=== PATIENT | female | born 1945 | race Caucasian/White ===

== ENCOUNTER 2023-12-17 16:53 | Inpatient (IN) | payer MEDICARE ==
[2023-12-17 17:48] LABS: Anisocytosis Slight; Basophils # (A) 0.1 k/uL (0-0.2); Basophils % (A) 1 %; Eosinophils # (A) 0.2 k/uL (0-0.7); Eosinophils % (A) 1 %; HCT 39.2 % (34.0-46.0); HGB 12.2 gm/dL (11.4-16.0); Hypochromasia Slight; Lymphocytes # (A) 1.1 k/uL (1.0-4.8); Lymphocytes % (A) 8 %; MCH 26.8 pg (25.0-35.0); MCHC 31.1 g/dL (31.0-37.0); Mean Platelet Volume 7.3; Monocytes # (A) 1.3 k/uL (0-1.0); Monocytes % (A) 9 %; Neutrophils % (A) 80 %; Platelet Count 376 k/uL (150-450); RBC 4.56 m/uL (3.80-5.40); WBC 14.9 k/uL (3.8-10.6)
[2023-12-17 18:04] LABS: INR 0.9 (<1.2); Prothrombin Time 10.3 sec (10.0-12.5)
[2023-12-17 18:08] LABS: Partial Thromboplastin Time 21.2 sec (22.0-30.0)
--- NOTE | 2023-12-17 18:12 | XR ---
EXAMINATION TYPE: XR chest 2V DATE OF EXAM: 12/17/2023 5:57 PM CLINICAL INDICATION: Female, 78 years old with history of difficulty breathing; [facility] COMPARISON: None TECHNIQUE: XR chest 2V Frontal and lateral views of the chest. FINDINGS: Lungs/Pleura: There is flattening of the diaphragm with increased lucency of the lungs. No evidence o f pneumothorax, pleural effusion or focal consolidation. Pulmonary vascularity: Unremarkable. Heart/mediastinum: Cardiomediastinal silhouette is unremarkable. Musculoskeletal: No acute osseous pathology. IMPRESSION: 1. No acute cardiopulmonary disease process. 2. COPD changes. [facility], , 12/17/2023 6:10 PM
--- NOTE | 2023-12-17 19:25 | ED ---
SOB HPI - General Chief Complaint: Shortness of Breath Stated Complaint: SOB Time Seen by Provider: 12/17/23 17:08 Source: patient, family Mode of arrival: wheelchair Limitations: no limitations - History of Present Illness Initial Comments: 78-year-old female with past medical history of COPD who presents emergency department with shortness of breath. States that for the past week she has had swelling in her lower extremities and increasing short of breath. She arrives with oxygen saturation in the 80s. She does not wear oxygen at home. She has never been hospitalized for COPD. No use of steroids. Does use a nebulizer. Took 1 treatment this morning at 9 AM. She denies any fevers, chills or cough. No history of DVT or PE. No history of congestive heart failure. She does take Lasix 20 mg twice daily. Denies weight gain. No history of coronary disease. No other alleviating, precipitating or modifying factors - Related Data Home Medications Medication Instructions Recorded Confirmed Aspirin 81 mg PO DAILY 03/29/14 12/17/23 Levothyroxine Sodium [Synthroid] 25 mcg PO DAILY 03/29/14 12/17/23 Famotidine [Pepcid] 20 mg PO DAILY PRN 12/17/23 12/17/23 Ferrous Sulfate [Feosol] 325 mg PO DAILY 12/17/23 12/17/23 Fluticasone Propion/Salmeterol 1 puff INHALATION RT-BID 12/17/23 12/17/23 [Wixela 500-50 Inhub] Furosemide [Lasix] 40 mg PO BID 12/17/23 12/17/23 allopurinoL [Zyloprim] 100 mg PO DAILY 12/17/23 12/17/23 Allergies Allergy/AdvReac Type Severity Reaction Status Date / Time Penicillins Allergy Rash/Hives Verified 12/17/23 18:47 Sulfa (Sulfonamide Allergy Rash/Hives Verified 12/17/23 18:47 Antibiotics) Review of Systems ROS Statement: Those systems with pertinent positive or pertinent negative responses have been documented in the HPI. ROS Other: All systems not noted in ROS Statement are negative. Past Medical History Past Medical History: COPD, Hyperlipidemia, Hypertension, Myocardial Infarction (ND), Osteoarthritis (OA), Thyroid Disorder History of Any Multi-Drug Resistant Organisms: None Reported Additional Past Surgical History / Comment(s): thyroidectomy, carotid stent Past Anesthesia/Blood Transfusion Reactions: No Reported Reaction Smoking Status: Former smoker Past Alcohol Use History: None Reported Past Drug Use History: None Reported - Past Family History Mother Family Medical History: Deep Vein Thrombosis (DVT) General Exam Limitations: no limitations General appearance: alert, in no apparent distress Head exam: Present: atraumatic, normocephalic, normal inspection Eye exam: Present: normal appearance, PERRL, EOMI. Absent: scleral icterus, con junctival injection, periorbital swelling ENT exam: Present: normal exam, mucous membranes moist Neck exam: Present: normal inspection. Absent: tenderness, meningismus, lymphadenopathy Respiratory exam: Present: decreased breath sounds. Absent: respiratory distress, wheezes, rales, rhonchi, stridor Cardiovascular Exam: Present: regular rate, normal rhythm, normal heart sounds. Absent: systolic murmur, diastolic murmur, rubs, gallop, clicks GI/Abdominal exam: Present: soft, normal bowel sounds. Absent: distended, tenderness, guarding, rebound, rigid Extremities exam: Present: full ROM, normal capillary refill, pedal edema. Absent: tenderness, joint swelling, calf tenderness Back exam: Present: normal inspection Neurological exam: Present: alert, oriented X3, CN II-XII intact Psychiatric exam: Present: normal affect, normal mood Skin exam: Present: warm, dry, intact, normal color. Absent: rash Course Vital Signs 12/17/23 12/17/23 12/17/23 16:58 17:30 18:00 Temperature 97.4 F L Pulse Rate 76 73 73 Respiratory 18 18 18 Rate Blood Pressure 158/76 169/64 154/70 O2 Sat by Pulse 91 L 97 98 Oximetry 12/17/23 12/17/23 12/17/23 18:30 19:00 19:18 Temperature Pulse Rate 71 71 71 Respiratory 18 18 18 Rate Blood Pressure 163/74 163/68 163/69 O2 Sat by Pulse 98 98 98 Oximetry 12/17/23 12/17/23 12/17/23 20:18 20:28 21:00 Temperature Pulse Rate 71 75 73 Respiratory 23 Rate Blood Pressure 166/73 O2 Sat by Pulse 97 Oximetry 12/17/23 12/18/23 12/18/23 22:00 04:00 08:37 Temperature Pulse Rate 74 73 70 Respiratory 24 22 Rate Blood Pressure 162/68 136/94 O2 Sat by Pulse 97 97 Oximetry 12/18/23 12/18/23 12/18/23 08:52 08:58 12:13 Temperature Pulse Rate 77 76 67 Respiratory 19 Rate Blood Pressure 176/93 O2 Sat by Pulse 96 Oximetry 12/18/23 12/18/23 12/18/23 12:21 13:00 17:13 Temperature Pulse Rate 65 71 70 Respiratory 16 Rate Blood Pressure 152/76 O2 Sat by Pulse 94 L Oximetry 12/18/23 12/18/23 12/18/23 17:35 18:40 20:52 Temperature Pulse Rate 69 76 71 Respiratory 19 18 18 Rate Blood Pressure 161/75 135/63 O2 Sat by Pulse 85 L 95 96 Oximetry 12/18/23 12/18/23 12/18/23 21:02 21:09 21:15 Temperature 98.2 F Pulse Rate 73 72 69 Respiratory 18 Rate Blood Pressure 135/63 O2 Sat by Pulse 96 Oximetry Medical Decision Making - Medical Decision Making Was pt. sent in by a medical professional or institution (Dr. PA, TELESALES SPECIALIST, urgent care, hospital, or prison...) When possible be specific @ -No Did you speak to anyone other than the patient for history (EMS, parent, family, police, friend...)? What history was obtained from this source @ -Spoke with the patient's family for history Did you review nursing and triage notes (agree or disagree)? Why? @ -I reviewed and agree with nursing and triage notes Were old charts reviewed (outside hosp., previous admission, EMS record, old EKG, old radiological studies, urgent care reports/EKG's, prison records)? Report findings @ -No old charts were reviewed Differential Diagnosis (chest pain, altered mental status, abdominal pain women, abdominal pain men, vaginal bleeding, weakness, fever, dyspnea, syncope, h eadache, dizziness, GI bleed, back pain, seizure, CVA, palpatations, mental health, musculoskeletal)? @ -Differential Dyspnea: Coronary syndrome, arrhythmia, tamponade, asthma, COPD, pulmonary embolism, pneumonia, pneumothorax, pulmonary effusion, anaphylaxis, diabetic ketoacidosis, flailed chest, pulmonary contusion, diaphragmatic rupture, anemia, neuromuscular, this is not meant to be an all-inclusive list. EKG interpreted by me (3pts min.). @ -yes and demonstrates sinus rhythm with a rate of 71. IL interval 144. QRS 94. QTc of 439. No acute ST segment elevations or depressions X-rays interpreted by me (1pt min.). @ -Yes and demonstrates no acute process CT interpreted by me (1pt min.). @ -Yes and demonstrates no PE but there are signs of heart failure U/S interpreted by me (1pt. min.). @ -None done What testing was considered but not performed or refused? (CT, X-rays, U/S, labs)? Why? @ -None What meds were considered but not given or refused? Why? @ -None Did you discuss the management of the patient with other professionals (professionals i.e. , PA, TELESALES SPECIALIST, lab, RT, psych nurse, 7th grade social studies teacher, shovel mechanic, teacher, correction officer city or county jail, manager of case)? Give summary @ -Spoke with Brisa for admission Was smoking cessation discussed for >3mins.? @ -No Was critical care preformed (if so, how long)? @ -Yes for NSTEMI Were there social determinants of health that impacted care today? How? (Homelessness, low income, unemployed, alcoholism, drug addiction, transportation, low edu. Level, literacy, decrease access to med. care, assisted, rehab)? @ -No Was there de-escalation of care discussed even if they declined (Discuss DNR or withdrawal of care, Hospice)? DNR status @ -No What co-morbidities impacted this encounter? (DM, HTN, Smoking, COPD, CAD, Cancer, CVA, ARF, Chemo, Hep., AIDS, mental health diagnosis, sleep apnea, morbid obesity)? @ -COPD Was patient admitted / discharged? Hospital course, mention meds given and route, prescriptions, significant lab abnormalities, going to OR and other pertinent info. @ -Upon arrival patient seen and evaluated in room 15. Thorough history and physical exam was performed. Patient placed on continuous pulse ox and cardiac monitoring. IV is established laboratory studies are conducted. Chest x-ray was performed. Patient was given a breathing treatment. CT was performed which demonstrated signs of heart failure. I did give the patient a dose of Lasix. She is started on heparin. Patient does have signs concerning for new onset heart failure. Because of this I did recommend admission. Patient was agreeable to this. Spoke with Brisa for admission Undiagnosed new problem with uncertain prognosis? @ -No Drug Therapy requiring intensive monitoring for toxicity (Heparin, Nitro, Insulin, Cardizem)? @ -Heparin Were any procedures done? @ -No Diagnosis/symptom? @ -Acute respiratory insufficiency, hypoxic respiratory failure, new onset heart failure, NSTEMI Acute, or Chronic, or Acute on Chronic? @ -Acute Uncomplicated (without systemic symptoms) or Complicated (systemic symptoms)? @ -Complicated Side effects of treatment? @ -No Exacerbation, Progression, or Severe Exacerbation? @ -No Poses a threat to life or bodily function? How? (Chest pain, USA, ND, pneumonia, PE, COPD, DKA, ARF, appy, cholecystitis, CVA, Diverticulitis, Homicidal, Suicidal, threat to staff... and all critical care pts) @ -Yes as patient does have elevated troponin with diagnosis of NSTEMI - Lab Data Result diagrams: 12/19/23 06:17 12/19/23 06:17 Lab Results 12/17/23 12/17/23 12/17/23 Range/Units 17:24 17:24 17:24 WBC 14.9 H (3.8-10.6) k/uL RBC 4.56 (3.80-5.40) m/uL Hgb 12.2 (11.4-16.0) gm/dL Hct 39.2 (34.0-46.0) % MCV 86.0 (80.0-100.0) fL MCH 26.8 (25.0-35.0) pg MCHC 31.1 (31.0-37.0) g/dL RDW 16.0 H (11.5-15.5) % Plt Count 376 (150-450) k/uL MPV 7.3 Neutrophils % 80 % Lymphocytes % 8 % Monocytes % 9 % Eosinophils % 1 % Basophils % 1 % Neutrophils # 12.0 H (1.3-7.7) k/uL Lymphocytes # 1.1 (1.0-4.8) k/uL Monocytes # 1.3 H (0-1.0) k/uL Eosinophils # 0.2 (0-0.7) k/uL Basophils # 0.1 (0-0.2) k/uL Hypochromasia Slight Anisocytosis Slight PT 10.3 (10.0-12.5) sec INR 0.9 (<1.2) APTT 21.2 L (22.0-30.0) sec D-Dimer 0.88 H (<0.60) mg/L FEU Sodium (137-145) mmol/L Potassium (3.5-5.1) mmol/L Chloride (98-107) mmol/L Carbon Dioxide (22-30) mmol/L Anion Gap mmol/L BUN (7-17) mg/dL Creatinine (0.52-1.04) mg/dL Est GFR (CKD-EPI)AfAm (>60 ml/min/1.73 sqM) Est GFR (CKD-EPI)NonAf (>60 ml/min/1.73 sqM) Glucose (74-99) mg/dL Plasma Lactic Acid Raúl 1.4 (0.7-2.0) mmol/L Calcium (8.4-10.2) mg/dL Magnesium (1.6-2.3) mg/dL Total Bilirubin (0.2-1.3) mg/dL AST (14-36) U/L ALT (4-34) U/L Alkaline Phosphatase (38-126) U/L Troponin I (0.000-0.034) ng/mL NT-Pro-B Natriuret Pep pg/mL Total Protein (6.3-8.2) g/dL Albumin (3.5-5.0) g/dL 12/17/23 12/17/23 Range/Units 17:24 19:52 WBC (3.8-10.6) k/uL RBC (3.80-5.40) m/uL Hgb (11.4-16.0) gm/dL Hct (34.0-46.0) % MCV (80.0-100.0) fL MCH (25.0-35.0) pg MCHC (31.0-37.0) g/dL RDW (11.5-15.5) % Plt Count (150-450) k/uL MPV Neutrophils % % Lymphocytes % % Monocytes % % Eosinophils % % Basophils % % Neutrophils # (1.3-7.7) k/uL Lymphocytes # (1.0-4.8) k/uL Monocytes # (0-1.0) k/uL Eosinophils # (0-0.7) k/uL Basophils # (0-0.2) k/uL Hypochromasia Anisocytosis PT (10.0-12.5) sec INR (<1.2) APTT (22.0-30.0) sec D-Dimer (<0.60) mg/L FEU Sodium 141 (137-145) mmol/L Potassium 3.0 L (3.5-5.1) mmol/L Chloride 96 L (98-107) mmol/L Carbon Dioxide 39 H (22-30) mmol/L Anion Gap 6 mmol/L BUN 19 H (7-17) mg/dL Creatinine 0.81 (0.52-1.04) mg/dL Est GFR (CKD-EPI)AfAm 82 (>60 ml/min/1.73 sqM) Est GFR (CKD-EPI)NonAf 71 (>60 ml/min/1.73 sqM) Glucose 84 (74-99) mg/dL Plasma Lactic Acid Raúl (0.7-2.0) mmol/L Calcium 7.7 L (8.4-10.2) mg/dL Magnesium 2.1 (1.6-2.3) mg/dL Total Bilirubin 0.5 (0.2-1.3) mg/dL AST 38 H (14-36) U/L ALT 31 (4-34) U/L Alkaline Phosphatase 160 H (38-126) U/L Troponin I 0.074 H* (0.000-0.034) ng/mL NT-Pro-B Natriuret Pep 1160 pg/mL Total Protein 7.0 (6.3-8.2) g/dL Albumin 3.9 (3.5-5.0) g/dL Disposition Clinical Impression: Hypoxia, NSTEMI (non-ST elevated myocardial infarction), Heart failure Disposition: ADMITTED IP TO THIS HOSP Condition: Serious Is patient prescribed a controlled substance at d/c from ED?: No Time of Disposition: 21:36 Decision to Admit Reason: Admit from EC Decision Date: 12/17/23 Decision Time: 21:36
[2023-12-17] MEDS: IPRATROPIUM-ALBUTEROL 3 ML NEB INHALATION SCH (20:18)
[2023-12-17 20:55] LABS: ALT 31 U/L (4-34); AST 38 U/L (14-36); African American GFR (CKD) 82 (>60 ml/min/1.73 sqM); Albumin 3.9 g/dL (3.5-5.0); Alkaline Phosphatase 160 U/L (38-126); Anion Gap 6 mmol/L; Blood Urea Nitrogen 19 mg/dL (7-17); Calcium 7.7 mg/dL (8.4-10.2); Carbon Dioxide 39 mmol/L (22-30); Chloride 96 mmol/L (98-107); Glucose 84 mg/dL (74-99); Magnesium 2.1 mg/dL (1.6-2.3); Non-African American GFR(CKD) 71 (>60 ml/min/1.73 sqM); Sodium 141 mmol/L (137-145); Total Bilirubin 0.5 mg/dL (0.2-1.3)
[2023-12-17 21:02] LABS: NT-Pro-B-Type Natriuretic Pept 1160 pg/mL
[2023-12-17] MEDS ORDERED: NALOXONE 0.4 MG/ML 1 ML VIAL IV PRN (21:36)
--- NOTE | 2023-12-17 21:38 | CT ---
EXAMINATION TYPE: CT chest angio for PE CT DLP: 221.9 mGycm, Automated exposure control for dose reduction was used. DATE OF EXAM: 12/17/2023 9:18 PM COMPARISON: Chest radiograph from same day. Multiple CTs of the chest with most recent on . CLINICAL INDICATION: Female, 78 years old with history of elevated d-dimer, elevated trop, hypoxiA; E levated d-dimer, elevated trop, hypoxia. TECHNIQUE/CONTRAST: CTA scan of the thorax is performed with IV Contrast, patient injected with 100ml mL of Isovue 370, M IP images are created and reviewed these are created on a separate workstation.. FINDINGS: Pulmonary Artery: There is no evidence for a filling defect within the pulmonary vasculature to sugge st acute pulmonary embolism. The pulmonary artery is of normal size. Lungs/Pleura: Trace bilateral pleural effusions. No evidence of focal consolidation, or pneumothorax. Pulmonary vascular congestion most pronounced in lung bases. Airway: Large airways are patent. Heart: Heart is enlarged for size. Coronary artery atherosclerosis is present. Vasculature: No evidence of aortic aneurysm. Mediastinum: No gross evidence of adenopathy. Musculoskeletal: No acute osseous abnormalities Soft Tissues/lymph nodes: Unremarkable. Lower neck: No significant findings. Upper Abdomen: Small hiatal hernia is present. IMPRESSION: 1. No evidence of pulmonary embolism. 2. Cardiomegaly with trace bilateral pleural effusions and pulmonary vascular congestion correlate fo r congestive heart failure. 3. Small hiatal hernia. [facility], , 12/17/2023 9:36 PM
[2023-12-17] MEDS ORDERED: HEPARIN SODIUM 1,000 UN/ML (10ML VL) IV PRN (21:41)
[2023-12-17] MEDS: ASPIRIN 81 MG PO STA (22:19)
[2023-12-17] MEDS: FUROSEMIDE 10 MG/ML 4 ML VIAL IV STA (22:19)
[2023-12-17] MEDS: HEPARIN SODIUM 1,000 UN/ML (10ML VL) IV ONE (22:29)
[2023-12-17] MEDS: HEPARIN SOD,PORK IN 0.45% NACL 25,000 UNIT in 0.45% NACL 1 250ML.BAG IV SCH (22:30)
[2023-12-17] MEDS: POTASSIUM CHLORIDE ER 20 MEQ TAB.ER PO STA (22:32)
[2023-12-18 05:02] LABS: Anisocytosis Slight; Basophils # (A) 0.1 k/uL (0-0.2); Basophils % (A) 1 %; Eosinophils # (A) 0.1 k/uL (0-0.7); Eosinophils % (A) 1 %; HCT 35.3 % (34.0-46.0); Hypochromasia Slight; Lymphocytes # (A) 1.2 k/uL (1.0-4.8); Lymphocytes % (A) 8 %; MCH 27.2 pg (25.0-35.0); MCHC 31.2 g/dL (31.0-37.0); MCV 87.3 fL (80.0-100.0); Mean Platelet Volume 7.3; Monocytes # (A) 1.4 k/uL (0-1.0); Monocytes % (A) 10 %; Neutrophils # (A) 10.8 k/uL (1.3-7.7); Neutrophils % (A) 78 %; Platelet Count 355 k/uL (150-450); RBC 4.04 m/uL (3.80-5.40); RDW 16.1 % (11.5-15.5); WBC 13.8 k/uL (3.8-10.6)
[2023-12-18] MEDS ORDERED: FAMOTIDINE 20 MG TAB PO PRN (09:17)
[2023-12-18] MEDS: SPIRONOLACTONE 25 MG TAB PO SCH (09:55)
[2023-12-18] MEDS: carvediloL 6.25 MG TAB PO SCH (09:55)
[2023-12-18] MEDS: FUROSEMIDE 10 MG/ML 4 ML VIAL IV SCH (09:55)
[2023-12-18] MEDS: ASPIRIN 81 MG PO SCH (09:55)
[2023-12-18 10:02] LABS: Anisocytosis Slight; Basophils # (A) 0.1 k/uL (0-0.2); Basophils % (A) 1 %; Eosinophils # (A) 0.1 k/uL (0-0.7); Eosinophils % (A) 1 %; HGB 12.6 gm/dL (11.4-16.0); Hypochromasia Slight; Lymphocytes # (A) 0.8 k/uL (1.0-4.8); Lymphocytes % (A) 5 %; MCH 27.8 pg (25.0-35.0); MCHC 31.5 g/dL (31.0-37.0); MCV 88.3 fL (80.0-100.0); Mean Platelet Volume 7.5; Monocytes # (A) 0.9 k/uL (0-1.0); Monocytes % (A) 6 %; Neutrophils % (A) 87 %; Platelet Count 393 k/uL (150-450); RBC 4.53 m/uL (3.80-5.40); WBC 16.1 k/uL (3.8-10.6)
[2023-12-18 10:50] LABS: African American GFR (CKD) >90 (>60 ml/min/1.73 sqM); Anion Gap 6 mmol/L; Blood Urea Nitrogen 18 mg/dL (7-17); Calcium 7.7 mg/dL (8.4-10.2); Carbon Dioxide 35 mmol/L (22-30); Chloride 102 mmol/L (98-107); Glucose 142 mg/dL (74-99); Non-African American GFR(CKD) 79 (>60 ml/min/1.73 sqM); Potassium 3.5 mmol/L (3.5-5.1); Sodium 143 mmol/L (137-145)
--- NOTE | 2023-12-18 11:14 | P.CRDCN ---
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 We have been asked to evaluate the patient for NSTEMI, possible new onset HF. Patient states that she came into the hospital due to her legs and feet swelling since Friday as well as increasing shortness of breath and hard to walk. She normally does have some shortness of breath at rest and with activity due to her underlying COPD. She is not O2 dependent. Patient also states that she has some chills, no sputum production. No chest pain. Patient has been started on a heparin drip and IV Lasix 40 mg every 12 hours. Patient is seen today in the emergency center waiting for a bed on the cardiac stepdown unit. Blood pressure 136/94, pulse ox 95% on 2 L nasal cannula, heart rate 79. Patient presented with a pulse ox of 91% on room air. EKG: Sinus rhythm with no acute ST changes Chest x-ray: No acute process. COPD. CTA of the chest no pulmonary embolism. Cardiomegaly with trace bilateral pleural effusions and pulmonary vascular congestion. Laboratory studies: WBC initially 14.9 now 16.1, hemoglobin 12.6. Sodium 143, potassium 3.5, BUN 18 creatinine 0.74. Troponin 0.074, 0.086 and 0.087. proBNP 1160. Home cardiac medications: Amlodipine 10 mg daily, aspirin 81 mg daily, Coreg 3.125 mg twice daily, Lasix 40 mg twice daily, hydralazine 100 mg twice daily, also on levothyroxine 25 mcg daily. Echocardiogram performed in 2016 revealed EF of 60 to 65%. Review Of Systems: At the time of my exam: CONSTITUTIONAL: Denies fever or chills. HEENT: Denies blurred vision, vision changes, or eye pain. Denies hemoptysis CARDIOVASCULAR: Denies chest pain. Denies orthopnea. Denies PND. Denies palpitations RESPIRATORY: Denies shortness of breath. GASTROINTESTINAL: Denies abdominal pain. Denies nausea or vomiting. HEMATOLOGIC: Denies bleeding disorders. GENITOURINARY: Denies any blood in urine. SKIN: Denies puritis. Denies rash. Physical examination: Gen: This is a 78-year-old female in no acute distress VS: reviewed HEENT: Head is atraumatic, normocephalic. Pupils equal, round. Sclerae is anicteric. NECK: Supple. No JVD. LUNGS: Decreased breath sounds bilaterally. No intercostal retractions. HEART: Regular rate and rhythm. No murmur. ABDOMEN: Soft No tenderness. EXTREMITIES: Bilateral lower extremity edema. No calf tenderness. NEUROLOGICAL: Patient is awake, alert and oriented x3. Assessment: Flat troponin elevation most likely due to COPD, hypoxia, rule out CAD Leukocytosis Acute on chronic diastolic heart failure COPD Hypertension Hyperlipidemia Plan: Resume patient's home cardiac medications with the following changes Hold hydralazine and amlodipine Increase Coreg to 6.25 mg twice daily Continue heparin drip for another 24 hours Continue IV Lasix 40 mg every 12 hours Add Aldactone 25 mg daily Monitor NAVYA, daily weights, electrolytes and renal function Obtain 2-D echocardiogram and Doppler study to assess cardiac structure and function Further recommendations to follow based upon clinical course Thank you kindly for this consultation. Nurse practitioner note has been reviewed, I agree with documented findings and plan of care. Patient was seen and examined. Past Medical History Past Medical History: COPD, Hyperlipidemia, Hypertension, Myocardial Infarction (MA), Osteoarthritis (OA), Thyroid Disorder History of Any Multi-Drug Resistant Organisms: None Reported Additional Past Surgical History / Comment(s): thyroidectomy, carotid stent Past Anesthesia/Blood Transfusion Reactions: No Reported Reaction Smoking Status: Former smoker Past Alcohol Use History: None Reported Past Drug Use History: None Reported - Past Family History Mother Family Medical History: Deep Vein Thrombosis (DVT) Medications and Allergies Home Medications Medication Instructions Recorded Confirmed Type Aspirin 81 mg PO DAILY 03/29/14 12/17/23 History Levothyroxine Sodium [Synthroid] 25 mcg PO DAILY 03/29/14 12/17/23 History Famotidine [Pepcid] 20 mg PO DAILY PRN 12/17/23 12/17/23 History Ferrous Sulfate [Feosol] 325 mg PO DAILY 12/17/23 12/17/23 History Fluticasone Propion/Salmeterol 1 puff INHALATION RT-BID 12/17/23 12/17/23 History [Wixela 500-50 Inhub] Furosemide [Lasix] 40 mg PO BID 12/17/23 12/17/23 History allopurinoL [Zyloprim] 100 mg PO DAILY 12/17/23 12/17/23 History amLODIPine [Norvasc] 10 mg PO DAILY 12/17/23 12/17/23 History carvediloL [Coreg] 3.125 mg PO BID 12/17/23 12/17/23 History hydrALAZINE HCL [Apresoline] 100 mg PO BID 12/17/23 12/17/23 History Allergies Allergy/AdvReac Type Severity Reaction Status Date / Time Penicillins Allergy Rash/Hives Verified 12/17/23 18:47 Sulfa (Sulfonamide Allergy Rash/Hives Verified 12/17/23 18:47 Antibiotics) Physical Exam Vitals: Vital Signs Temp Pulse Resp BP Pulse Ox 12/18/23 04:00 73 22 136/94 97 12/17/23 22:00 74 24 162/68 97 12/17/23 21:00 73 23 166/73 97 12/17/23 20:28 75 12/17/23 20:18 71 12/17/23 19:18 71 18 163/69 98 12/17/23 19:00 71 18 163/68 98 12/17/23 18:30 71 18 163/74 98 12/17/23 18:00 73 18 154/70 98 12/17/23 17:30 73 18 169/64 97 12/17/23 16:58 97.4 F L 76 18 158/76 91 L Intake and Output 12/17/23 12/18/23 12/18/23 22:59 06:59 14:59 Other: Weight 66.224 kg Results 12/18/23 09:12 12/18/23 09:12 Cardiac Enzymes 12/17/23 12/17/23 12/18/23 Range/Units 17:24 19:52 00:18 AST 38 H (14-36) U/L Troponin I 0.074 H* 0.086 H* (0.000-0.034) ng/mL 12/18/23 Range/Units 04:11 AST (14-36) U/L Troponin I 0.087 H* (0.000-0.034) ng/mL Coagulation 12/17/23 12/18/23 Range/Units 17:24 04:11 PT 10.3 (10.0-12.5) sec APTT 21.2 L 61.7 H (22.0-30.0) sec CBC 12/17/23 12/18/23 Range/Units 17:24 04:11 WBC 14.9 H 13.8 H (3.8-10.6) k/uL RBC 4.56 4.04 (3.80-5.40) m/uL Hgb 12.2 11.0 L (11.4-16.0) gm/dL Hct 39.2 35.3 (34.0-46.0) % Plt Count 376 355 (150-450) k/uL Comprehensive Metabolic Panel 12/17/23 Range/Units 19:52 Sodium 141 (137-145) mmol/L Potassium 3.0 L (3.5-5.1) mmol/L Chloride 96 L (98-107) mmol/L Carbon Dioxide 39 H (22-30) mmol/L BUN 19 H (7-17) mg/dL Creatinine 0.81 (0.52-1.04) mg/dL Glucose 84 (74-99) mg/dL Calcium 7.7 L (8.4-10.2) mg/dL AST 38 H (14-36) U/L ALT 31 (4-34) U/L Alkaline Phosphatase 160 H (38-126) U/L Total Protein 7.0 (6.3-8.2) g/dL Albumin 3.9 (3.5-5.0) g/dL Current Medications Generic Name Dose Route Start Last Admin Trade Name Freq PRN Reason Stop Dose Admin Albuterol/Ipratropium 3 ml 12/17/23 20:15 12/18/23 03:54 Ipratropium-Albuterol 3 Ml Neb INHALATION Not Given Q4HR [facility] Furosemide 40 mg 12/18/23 09:00 Furosemide 10 Mg/Ml 4 Ml Vial IV BID INDIRA Heparin Sodium (Porcine) 0 unit 12/17/23 21:41 Heparin Sodium 1,000 Un/Ml (10ml Vl) IV PER PROTOCOL PRN Low PTT Protocol Heparin Sodium/Sodium Chloride 250 mls @ 7.947 mls/hr 12/17/23 21:45 12/17/23 22:30 25,000 unit/ Sodium Chloride IV 12 units/kg/hr .Q24H INDIRA 7.947 mls/hr Administration Protocol 12 UNITS/KG/HR Naloxone HCl 0.2 mg 12/17/23 21:36 Naloxone 0.4 Mg/Ml 1 Ml Vial IV Q2M PRN Opioid Reversal Intake and Output 12/17/23 12/18/23 12/18/23 22:59 06:59 14:59 Other: Weight 66.224 kg 12/18/23 04:11 12/17/23 19:52
--- NOTE | 2023-12-18 11:25 | CA ---
Transthoracic Echo Report Name: Milana Cooper Age: 78 Gender: F : 1945 Exam Date: 12/18/2023 09:16 Exam Location: [facility] Ht (in): 60 Wt (lb): 146 Ordering Physician: Lisa Nash DO Attending/Referring Phys: [id number], [employer] Radha Zuluaga RDCS Procedure CPT: Indications: new onset heart failure Cardiac Hx: Technical Quality: Technically difficult study Contrast 1: Definity Total Dose (mL): 5 Contrast 2: Total Dose (mL): MEASUREMENTS (Male / Female) Normal Values 2D ECHO LV Diastolic Diameter PLAX 4.5 cm 4.2 - 5.9 / 3.9 - 5.3 cm LV Systolic Diameter PLAX 3.0 cm IVS Diastolic Thickness 0.7 cm 0.6 - 1.0 / 0.6 - 0.9 cm LVPW Diastolic Thickness 0.8 cm 0.6 - 1.0 / 0.6 - 0.9 cm LV Relative Wall Thickness 0.3 LVOT Diameter 1.7 cm LV Diastolic Volume MOD BP 94.6 cm??? 67 - 155 / 56 - 104 cm??? LV Systolic Volume MOD BP 35.7 cm??? 22 - 58 / 19 - 49 cm??? LV Ejection Fraction MOD BP 62.3 % >= 55 % LV Cardiac Index MOD BP 2428.4 cm???/min???m??? LV Diastolic Volume MOD 4C 84.3 cm??? LV Systolic Volume MOD 4C 30.6 cm??? LV Ejection Fraction MOD 4C 63.7 % LV Cardiac Index MOD 4C 2214.9 cm???/min???m??? LV Diastolic Length 4C 7.0 cm LV Systolic Length 4C 5.8 cm LV Diastolic Volume MOD 2C 96.5 cm??? LV Systolic Volume MOD 2C 36.7 cm??? LV Ejection Fraction MOD 2C 62.0 % LV Cardiac Index MOD 2C 2466.5 cm???/min???m??? LV Diastolic Length 2C 7.7 cm LV Systolic Length 2C 6.6 cm LA Volume 33.1 cm??? 18 - 58 / 22 - 52 cm??? LA Volume Index 19.5 cm???/m??? 16 - 28 cm???/m??? Ascending Aorta Diameter 2.7 cm DOPPLER AV Peak Velocity 150.9 cm/s AV Peak Gradient 9.1 mmHg AV Mean Velocity 100.8 cm/s AV Mean Gradient 4.4 mmHg AV Velocity Time Integral 36.0 cm LVOT Peak Velocity 103.1 cm/s LVOT Peak Gradient 4.3 mmHg LVOT Velocity Time Integral 26.6 cm LVOT Stroke Volume 60.9 cm??? LVOT Stroke Volume Index 37.3 ml/m??? LVOT Cardiac Index 2511.0 cm???/min???m??? AV Area Cont Eq vti 1.7 cm??? AV Area Cont Eq pk 1.6 cm??? MV Peak Velocity 154.2 cm/s MV Peak Gradient 9.5 mmHg MV Mean Velocity 101.4 cm/s MV Mean Gradient 4.5 mmHg MV Velocity Time Integral 38.8 cm MV Area PHT 3.4 cm??? Mitral E Point Velocity 111.7 cm/s Mitral A Point Velocity 129.1 cm/s Mitral E to A Ratio 0.9 MV Deceleration Time 224.9 ms TR Peak Velocity 298.2 cm/s TR Peak Gradient 35.6 mmHg Right Atrial Pressure 5.0 mmHg Pulmonary Artery Systolic Pressu 40.6 mmHg Right Ventricular Systolic Press 40.6 mmHg PV Peak Velocity 90.1 cm/s PV Peak Gradient 3.2 mmHg FINDINGS Left Ventricle Left ventricular ejection fraction is estimated at 55-60 %. Left ventricular cavity size normal. Left ventricular wall thickness normal. No obvious regional wall motion abnormalities. Right Ventricle Normal right ventricular size and function. Mild pulmonary hypertension. Right Atrium Normal right atrial size. Left Atrium Normal left atrial size. Mitral Valve Mitral valve thickened. No evidence for mitral valve prolapse. Mild mitral stenosis. 5mmHg. Mild mitral regurgitation. Aortic Valve Trileaflet aortic valve. No aortic valve stenosis or regurgitation. Tricuspid Valve Structurally normal tricuspid valve. No tricuspid stenosis. Mild tricuspid regurgitation. Pulmonic Valve Pulmonic valve not well visualized. No pulmonic stenosis. No pulmonic regurgitation. Pericardium No pericardial effusion. Prominent epicardial fat. Aorta Normal size aortic root and proximal ascending aorta. CONCLUSIONS Normal LV size and systolic function with mild concentric LVH. There is mild mitral and the calcification and aortic sclerosis. There is calcification and mild restriction of 5 mitral valve leaflets there is probably mild stenosis. There is mild mitral regurgitation and mild tricuspid regurgitation.. There is mild pulmonary hypertension. No pericardial effusion probable fat pad. Previewed by: Dr. Katelyn Navas MD (Electronically Signed) Final Date: 18 December 2023 11:24
--- NOTE | 2023-12-18 15:39 | P.HPIM ---
History of Present Illness History of present illness; 78-year-old female with a past medical history of COPD, hyperlipidemia, hypertension, history of [place], OA, and thyroid disorder presents with complaints of shortness of breath. Reports for the past week she has had increased shortness of breath and swelling in the lower extremities. Reports she is not on oxygen at home and that she has never been hospitalized for COPD in the past. Reports using a nebulizer at home but never steroids. Denies fever, chills, cough, history of DVT or PE, and history of CHF. Reports she takes 20 mg Lasix twice daily at home, but denies recent weight gain and history of coronary artery disease. States there are no alleviating or precipitating factors to her shortness of breath. Initial lab work from the ER was significant for WBC 14.9, hemoglobin 12.2, MCV 86.0, D-dimer 0.88, sodium 141, potassium 3, bicarb 39, creatinine 0.81, calcium 7.7, AST 38, ALT 31, troponin 0.074--> 0.086--> 0.087, and BNP 1160. EKG done in the ER showed heart rate of 71 bpm, no ST segment elevation or depression seen, no T-wave inversions seen. Sinus rhythm, possible right atrial enlargement, possible right ventricular hypertrophy, QTc 439. ER CXR: No acute cardiopulmonary disease process, and COPD changes ER CTA chest: No evidence of PE, cardiomegaly with trace bilateral pleural effusions and pulmonary vascular congestion. Patient admitted to internal medicine service REVIEW OF SYSTEMS: CONSTITUTIONAL: No fever, no malaise, no fatigue. HEENT: No recent visual problems or hearing problems. Denied any sore throat. CARDIOVASCULAR: No chest pain, orthopnea, PND, no palpitations, no syncope. PULMONARY: Admits to shortness of breath, no cough, no hemoptysis. GASTROINTESTINAL: No diarrhea, no nausea, no vomiting, no abdominal pain. NEUROLOGICAL: No headaches, no weakness, no numbness. HEMATOLOGICAL: Denies any bleeding or petechiae. GENITOURINARY: Denies any burning micturition, frequency, or urgency. MUSCULOSKELETAL/RHEUMATOLOGICAL: Denies any joint pain, or any muscle pain, but admits to lower extremity swelling ENDOCRINE: Denies any polyuria or polydipsia. The rest of the 14-point review of systems is negative. PHYSICAL EXAMINATION: GENERAL: The patient is alert and oriented x3, not in any acute distress. Well developed, well nourished. HEENT: Pupils are round and equally reacting to light. EOMI. No scleral icterus. No conjunctival pallor. Normocephalic, atraumatic. No pharyngeal erythema. No thyromegaly. CARDIOVASCULAR: S1 and S2 present. No murmurs, rubs, or gallops. PULMONARY: Chest is clear to auscultation b/l, no wheezing or crackles. ABDOMEN: Soft, nontender, nondistended, normoactive bowel sounds. No palpable organomegaly. MUSCULOSKELETAL: No joint swelling or deformity. EXTREMITIES: No cyanosis, clubbing, edema noted to the mid calf NEUROLOGICAL: Gross neurological examination did not reveal any focal deficits. SKIN: Rash/erythema noted under the left breast Assessment & Plan: Acute: #Shortness of breath: In the setting of elevated D-dimer and lower extremity swelling, COPD exacerbation versus new-onset CHF versus ACS versus unknown etiology Chest CTA negative for PE Cardiology on consult, appreciate further recommendations Normally takes amlodipine 10 mg at home, potentially contributing to the lower extremity swelling, currently being held here Received one-time Lasix 40 mg IV in the ED Increased Coreg to 6.25 mg twice daily, continue heparin drip for another 24 hours in the setting of elevated tropes, continue IV Lasix 40 mg twice daily, and add Aldactone 25 mg daily Echo ordered, follow-up results #Hypokalemia: Potassium now 3.5 and now started on Aldactone 25 mg p.o. daily so we will hold off on replacing potassium at this moment Continue to monitor BMP #Metabolic alkalosis: Continue to monitor #Hypocalcemia: Continue to monitor CMP #COPD: Continue breathing treatments #Hypertension: Holding home Norvasc and hydralazine Treating with Aldactone 25 mg p.o. daily, and Coreg 6.25 mg p.o. twice daily with meals #Ary skin infection under the left breast: Started topical nystatin Continue to monitor Chronic: #Hypothyroidism: Continue home Synthroid #Hyperlipidemia: #Osteoarthritis: F: None E: Potassium N: Heart healthy diet DVT ppx: Heparin drip GI ppx: Pepcid 20 mg p.o. daily as needed CODE STATUS: Full code Dispo: Pending clinical course Jon Griffin MD PGY-1 FM Dictation was produced using [employer] dictation software. please excuse any grammatical, word or spelling errors. Past Medical History Past Medical History: COPD, Hyperlipidemia, Hypertension, Myocardial Infarction ([place]), Osteoarthritis (OA), Thyroid Disorder History of Any Multi-Drug Resistant Organisms: None Reported Additional Past Surgical History / Comment(s): thyroidectomy, carotid stent Past Anesthesia/Blood Transfusion Reactions: No Reported Reaction Smoking Status: Former smoker Past Alcohol Use History: None Reported Past Drug Use History: None Reported - Past Family History Mother Family Medical History: Deep Vein Thrombosis (DVT) Medications and Allergies Home Medications Medication Instructions Recorded Confirmed Type Aspirin 81 mg PO DAILY 03/29/14 12/17/23 History Levothyroxine Sodium [Synthroid] 25 mcg PO DAILY 03/29/14 12/17/23 History Famotidine [Pepcid] 20 mg PO DAILY PRN 12/17/23 12/17/23 History Ferrous Sulfate [Feosol] 325 mg PO DAILY 12/17/23 12/17/23 History Fluticasone Propion/Salmeterol 1 puff INHALATION RT-BID 12/17/23 12/17/23 History [Wixela 500-50 Inhub] Furosemide [Lasix] 40 mg PO BID 12/17/23 12/17/23 History allopurinoL [Zyloprim] 100 mg PO DAILY 12/17/23 12/17/23 History amLODIPine [Norvasc] 10 mg PO DAILY 12/17/23 12/17/23 History carvediloL [Coreg] 3.125 mg PO BID 12/17/23 12/17/23 History hydrALAZINE HCL [Apresoline] 100 mg PO BID 12/17/23 12/17/23 History Allergies Allergy/AdvReac Type Severity Reaction Status Date / Time Penicillins Allergy Rash/Hives Verified 12/17/23 18:47 Sulfa (Sulfonamide Allergy Rash/Hives Verified 12/17/23 18:47 Antibiotics) Physical Exam Vitals: Vital Signs Temp Pulse Resp BP Pulse Ox 12/18/23 08:58 76 19 176/93 96 12/18/23 08:52 77 12/18/23 08:37 70 12/18/23 04:00 73 22 136/94 97 12/17/23 22:00 74 24 162/68 97 12/17/23 21:00 73 23 166/73 97 12/17/23 20:28 75 12/17/23 20:18 71 12/17/23 19:18 71 18 163/69 98 12/17/23 19:00 71 18 163/68 98 12/17/23 18:30 71 18 163/74 98 12/17/23 18:00 73 18 154/70 98 12/17/23 17:30 73 18 169/64 97 12/17/23 16:58 97.4 F L 76 18 158/76 91 L Intake and Output 12/17/23 12/18/23 12/18/23 22:59 06:59 14:59 Other: Weight 66.224 kg Results CBC & Chem 7: 12/18/23 09:12 12/18/23 09:12 Labs: Abnormal Lab Results - Last 24 Hours (Table) 12/17/23 12/17/23 12/17/23 Range/Units 17:24 17:24 17:24 WBC 14.9 H (3.8-10.6) k/uL Hgb (11.4-16.0) gm/dL RDW 16.0 H (11.5-15.5) % Neutrophils # 12.0 H (1.3-7.7) k/uL Monocytes # 1.3 H (0-1.0) k/uL APTT 21.2 L (22.0-30.0) sec D-Dimer 0.88 H (<0.60) mg/L FEU Potassium (3.5-5.1) mmol/L Chloride (98-107) mmol/L Carbon Dioxide (22-30) mmol/L BUN (7-17) mg/dL Calcium (8.4-10.2) mg/dL AST (14-36) U/L Alkaline Phosphatase (38-126) U/L Troponin I 0.074 H* (0.000-0.034) ng/mL 12/17/23 12/18/23 12/18/23 Range/Units 19:52 00:18 04:11 WBC (3.8-10.6) k/uL Hgb (11.4-16.0) gm/dL RDW (11.5-15.5) % Neutrophils # (1.3-7.7) k/uL Monocytes # (0-1.0) k/uL APTT (22.0-30.0) sec D-Dimer (<0.60) mg/L FEU Potassium 3.0 L (3.5-5.1) mmol/L Chloride 96 L (98-107) mmol/L Carbon Dioxide 39 H (22-30) mmol/L BUN 19 H (7-17) mg/dL Calcium 7.7 L (8.4-10.2) mg/dL AST 38 H (14-36) U/L Alkaline Phosphatase 160 H (38-126) U/L Troponin I 0.086 H* 0.087 H* (0.000-0.034) ng/mL 12/18/23 12/18/23 Range/Units 04:11 04:11 WBC 13.8 H (3.8-10.6) k/uL Hgb 11.0 L (11.4-16.0) gm/dL RDW 16.1 H (11.5-15.5) % Neutrophils # 10.8 H (1.3-7.7) k/uL Monocytes # 1.4 H (0-1.0) k/uL APTT 61.7 H (22.0-30.0) sec D-Dimer (<0.60) mg/L FEU Potassium (3.5-5.1) mmol/L Chloride (98-107) mmol/L Carbon Dioxide (22-30) mmol/L BUN (7-17) mg/dL Calcium (8.4-10.2) mg/dL AST (14-36) U/L Alkaline Phosphatase (38-126) U/L Troponin I (0.000-0.034) ng/mL
[2023-12-18] MEDS: NYSTATIN 100,000 UNIT/GM POWD 15 GM TOPICAL SCH (16:07)
[2023-12-18] MEDS ORDERED: IPRATROPIUM-ALBUTEROL 3 ML NEB INHALATION PRN (21:05)
[2023-12-19] MEDS: LEVOTHYROXINE 25 MCG TAB PO SCH (06:24)
[2023-12-19 06:39] LABS: Basophils # (A) 0.1 k/uL (0-0.2); Basophils % (A) 0 %; Eosinophils # (A) 0.1 k/uL (0-0.7); Eosinophils % (A) 1 %; HCT 35.1 % (34.0-46.0); HGB 10.6 gm/dL (11.4-16.0); Hypochromasia Marked; Lymphocytes % (A) 7 %; MCH 26.8 pg (25.0-35.0); MCHC 30.1 g/dL (31.0-37.0); MCV 88.9 fL (80.0-100.0); Mean Platelet Volume 6.8; Monocytes # (A) 1.2 k/uL (0-1.0); Monocytes % (A) 8 %; Neutrophils # (A) 12.3 k/uL (1.3-7.7); Neutrophils % (A) 82 %; Platelet Count 346 k/uL (150-450); RBC 3.95 m/uL (3.80-5.40); RDW 15.6 % (11.5-15.5); WBC 15.1 k/uL (3.8-10.6)
[2023-12-19] MEDS: IPRATROPIUM-ALBUTEROL 3 ML NEB INHALATION SCH (08:00)
[2023-12-19] MEDS: allopurinoL 100 MG TAB PO SCH (08:12)
[2023-12-19] MEDS: FERROUS SULFATE 325 MG TAB PO SCH (08:12)
[2023-12-19 08:40] LABS: African American GFR (CKD) 70 (>60 ml/min/1.73 sqM); Blood Urea Nitrogen 21 mg/dL (7-17); Chloride 96 mmol/L (98-107); Glucose 87 mg/dL (74-99); Non-African American GFR(CKD) 61 (>60 ml/min/1.73 sqM); Potassium 3.2 mmol/L (3.5-5.1); Sodium 142 mmol/L (137-145)
[2023-12-19 08:47] LABS: Anion Gap 11 mmol/L
[2023-12-19 08:56] LABS: Carbon Dioxide 35 mmol/L (22-30)
[2023-12-19] MEDS: SPIRONOLACTONE 25 MG TAB PO STA (10:28)
[2023-12-19] MEDS: VALSARTAN 160 MG TAB PO SCH (10:28)
[2023-12-19] MEDS: POTASSIUM CHLORIDE ER 20 MEQ TAB.ER PO STA (11:10)
--- NOTE | 2023-12-19 11:28 | P.PN ---
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 We have been asked to evaluate the patient for NSTEMI, possible new onset HF. Patient states that she came into the hospital due to her legs and feet swelling since Friday as well as increasing shortness of breath and hard to walk. She normally does have some shortness of breath at rest and with activity due to her underlying COPD. She is not O2 dependent. Patient also states that she has some chills, no sputum production. No chest pain. Patient has been started on a heparin drip and IV Lasix 40 mg every 12 hours. Patient is seen today in the emergency center waiting for a bed on the cardiac stepdown unit. Blood pressure 136/94, pulse ox 95% on 2 L nasal cannula, heart rate 79. Patient presented with a pulse ox of 91% on room air. EKG: Sinus rhythm with no acute ST changes Chest x-ray: No acute process. COPD. CTA of the chest no pulmonary embolism. Cardiomegaly with trace bilateral pleural effusions and pulmonary vascular congestion. Laboratory studies: WBC initially 14.9 now 16.1, hemoglobin 12.6. Sodium 143, potassium 3.5, BUN 18 creatinine 0.74. Troponin 0.074, 0.086 and 0.087. proBNP 1160. Home cardiac medications: Amlodipine 10 mg daily, aspirin 81 mg daily, Coreg 3. 125 mg twice daily, Lasix 40 mg twice daily, hydralazine 100 mg twice daily, also on levothyroxine 25 mcg daily. Echocardiogram performed in 2015 revealed EF of 60 to 65%. 25 Patient is seen today in follow-up on the cardiac stepdown unit. She has no longer extremity edema. No complaints of chest pain no shortness of breath no cough. Yesterday, amlodipine was discontinued as well as hydralazine. Blood pressure 160/84, heart rate 71, pulse ox 97% on 2 L nasal cannula. Repeat blood work reveals WBC 15.1, hemoglobin 10.6. Potassium 3.2, BUN 21 creatinine 0.91. Physical examination: Gen: This is a 78-year-old female in no acute distress VS: reviewed HEENT: Head is atraumatic, normocephalic. Pupils equal, round. Sclerae is anicteric. NECK: Supple. No JVD. LUNGS: Decreased breath sounds bilaterally. No intercostal retractions. HEART: Regular rate and rhythm. No murmur. ABDOMEN: Soft No tenderness. EXTREMITIES: Bilateral lower extremity edema. No calf tenderness. NEUROLOGICAL: Patient is awake, alert and oriented x3. Assessment: Flat troponin elevation most likely due to COPD, hypoxia, rule out CAD Leukocytosis Acute on chronic diastolic heart failure COPD Hypertension Hyperlipidemia Plan: Patient presented with hypoxia pulse ox in the 80s, mild COPD exacerbation Cardiology consulted for abnormal troponins Patient complained of lower extremity edema with swelling 2D echo shows preserved LV and RV size and function and no significant valvular abnormalities She was on amlodipine and hydralazine for hypertension management. Both have been discontinued Carvedilol dose was increased to 6.25 mg twice daily Valsartan has been initiated 160 mg p.o. daily and will be maximized over the next 1 to 2 weeks Follow renal function Lower extremity swelling likely as a result of amlodipine and hydralazine Stop IV Lasix, switch to p.o. Lasix 40 mg twice daily and increase Aldactone to 50 mg p.o. daily Stop IV heparin today Continue statins Plan to monitor patient 1 more day and discharge home tomorrow Patient will follow-up in the office with Dr. Garnett in 1 to 2 weeks. Nurse practitioner note has been reviewed, I agree with documented findings and plan of care. Patient was seen and examined. Objective - Vital Signs Vital signs: Vital Signs Temp 97.8 F 12/19/23 11:07 Pulse 68 12/19/23 11:13 Resp 17 12/19/23 11:07 BP 128/74 12/19/23 11:07 Pulse Ox 84 L 12/19/23 11:13 FiO2 Intake & Output 12/18/23 12/19/23 12/19/23 18:59 06:59 18:59 Intake Total 200 Output Total 1150 Balance -1150 200 Weight 45.5 kg Intake: Oral 200 Output: Urine 1150 Other: Voiding Method External Catheter External Catheter # Voids 1 # Bowel Movements 1 - Labs CBC & Chem 7: 12/19/23 06:17 12/19/23 06:17 Labs: Abnormal Lab Results - Last 24 Hours (Table) 12/18/23 12/19/23 12/19/23 Range/Units 15:20 06:17 06:17 WBC 15.1 H (3.8-10.6) k/uL Hgb 10.6 L (11.4-16.0) gm/dL MCHC 30.1 L (31.0-37.0) g/dL RDW 15.6 H (11.5-15.5) % Neutrophils # 12.3 H (1.3-7.7) k/uL Monocytes # 1.2 H (0-1.0) k/uL APTT 62.2 H 55.0 H (22.0-30.0) sec Potassium (3.5-5.1) mmol/L Chloride (98-107) mmol/L Carbon Dioxide (22-30) mmol/L BUN (7-17) mg/dL Calcium (8.4-10.2) mg/dL 12/19/23 Range/Units 06:17 WBC (3.8-10.6) k/uL Hgb (11.4-16.0) gm/dL MCHC (31.0-37.0) g/dL RDW (11.5-15.5) % Neutrophils # (1.3-7.7) k/uL Monocytes # (0-1.0) k/uL APTT (22.0-30.0) sec Potassium 3.2 L (3.5-5.1) mmol/L Chloride 96 L (98-107) mmol/L Carbon Dioxide 35 H (22-30) mmol/L BUN 21 H (7-17) mg/dL Calcium 7.0 L (8.4-10.2) mg/dL
[2023-12-19] MEDS ORDERED: CALCIUM CARBONATE 500 MG CHEWABLE PO PRN (14:32)
--- NOTE | 2023-12-19 14:34 | P.PN ---
Subjective History of present illness; 78-year-old female with a past medical history of COPD, hyperlipidemia, hypertension, history of [place], OA, and thyroid disorder presents with complaints of shortness of breath. Reports for the past week she has had increased shortness of breath and swelling in the lower extremities. Reports she is not on oxygen at home and that she has never been hospitalized for COPD in the past. Reports using a nebulizer at home but never steroids. Denies fever, chills, cough, history of DVT or PE, and history of CHF. Reports she takes 20 mg Lasix twice daily at home, but denies recent weight gain and history of coronary artery disease. States there are no alleviating or precipitating factors to her shortness of breath. Initial lab work from the ER was significant for WBC 14.9, hemoglobin 12.2, MCV 86.0, D-dimer 0.88, sodium 141, potassium 3, bicarb 39, creatinine 0.81, calcium 7.7, AST 38, ALT 31, troponin 0.074--> 0.086--> 0.087, and BNP 1160. EKG done in the ER showed heart rate of 71 bpm, no ST segment elevation or depression seen, no T-wave inversions seen. Sinus rhythm, possible right atrial enlargement, possible right ventricular hypertrophy, QTc 439. ER CXR: No acute cardiopulmonary disease process, and COPD changes ER CTA chest: No evidence of PE, cardiomegaly with trace bilateral pleural eff usions and pulmonary vascular congestion. Subjective: 12/19/2023: Patient seen at bedside. No significant overnight events. Patient reports she is feeling much better and that she has noticed her legs are significantly less swollen than they were on admission. Pertinent positives and negatives discussed above, a complete review of systems was preformed and all the other sytems were negative. Vitals Signs Reveiwed. GENERAL: The patient is alert and oriented x3, not in any acute distress. Well developed, well nourished. HEENT: Pupils are round and equally reacting to light. EOMI. No scleral icterus. No conjunctival pallor. Normocephalic, atraumatic. No pharyngeal erythema. No thyromegaly. CARDIOVASCULAR: S1 and S2 present. No murmurs, rubs, or gallops. PULMONARY: Chest is clear to auscultation b/l, no wheezing or crackles. ABDOMEN: Soft, nontender, nondistended, normoactive bowel sounds. No palpable organomegaly. MUSCULOSKELETAL: No joint swelling or deformity. EXTREMITIES: No cyanosis, clubbing, edema significantly improved, trace at best bilaterally NEUROLOGICAL: Gross neurological examination did not reveal any focal deficits. SKIN: Rash/erythema noted under the left breast Data Reveiwed Today: Patient Labs: WBC 15.1, hemoglobin 10.6, sodium 142, potassium 3.2, bicarb 35, creatinine 0.91, calcium 7. Imaging: Echo showed EF of 55 to 60%, normal left ventricular size and systolic function with mild concentric LVH. Mild mitral and the calcification and aortic sclerosis. There is calcification of mild restriction of the mitral valve leaflets probably from mild stenosis. There is mild pulmonary hypertension, no pericardial effusion. #Shortness of breath: In the setting of elevated D-dimer and lower extremity swelling, COPD exacerbation versus new-onset CHF versus ACS versus unknown etiology Chest CTA negative for PE Cardiology on consult, appreciate further recommendations Normally takes amlodipine 10 mg at home, potentially contributing to the lower extremity swelling, currently being held here Received one-time Lasix 40 mg IV in the ED Increased Coreg to 6.25 mg twice daily, discontinue heparin drip, switched IV Lasix to p.o. Lasix 40 mg twice daily and increased Aldactone to 50 mg p.o. daily Continue statin #Hypokalemia: Potassium now 3.5 and now started on Aldactone 25 mg p.o. daily Continue to replete Continue to monitor BMP #Metabolic alkalosis: Continue to monitor #Hypocalcemia: Continue to monitor CMP Continue calcium carbonate 500 mg p.o. 3 times daily #COPD: Continue breathing treatments #Hypertension: Holding home Norvasc and hydralazine Treating with Aldactone 50 mg p.o. daily, and Coreg 6.25 mg p.o. twice daily with meals #Ary skin infection under the left breast: Started topical nystatin Continue to monitor Chronic: #Hypothyroidism: Continue home Synthroid #Hyperlipidemia: #Osteoarthritis: F: None E: Potassium N: Heart healthy diet DVT ppx: Heparin drip GI ppx: Pepcid 20 mg p.o. daily as needed CODE STATUS: Full code Dispo: Potentially tomorrow if patient continues to improve, in agreement with cardiology's recommendation of course of stay. Jon Griffin MD PGY-1 FM Objective - Vital Signs Vital signs: Vital Signs Temp 97.8 F 12/19/23 11:07 Pulse 68 12/19/23 11:13 Resp 17 12/19/23 11:07 BP 128/74 12/19/23 11:07 Pulse Ox 84 L 12/19/23 11:13 FiO2 Intake & Output 12/18/23 12/19/23 12/19/23 18:59 06:59 18:59 Intake Total 200 Output Total 1150 Balance -1150 200 Weight 45.5 kg Intake: Oral 200 Output: Urine 1150 Other: Voiding Method External Catheter External Catheter # Voids 1 # Bowel Movements 1 - Labs CBC & Chem 7: 12/19/23 06:17 12/19/23 06:17 Labs: Abnormal Lab Results - Last 24 Hours (Table) 12/18/23 12/19/23 12/19/23 Range/Units 15:20 06:17 06:17 WBC 15.1 H (3.8-10.6) k/uL Hgb 10.6 L (11.4-16.0) gm/dL MCHC 30.1 L (31.0-37.0) g/dL RDW 15.6 H (11.5-15.5) % Neutrophils # 12.3 H (1.3-7.7) k/uL Monocytes # 1.2 H (0-1.0) k/uL APTT 62.2 H 55.0 H (22.0-30.0) sec Potassium (3.5-5.1) mmol/L Chloride (98-107) mmol/L Carbon Dioxide (22-30) mmol/L BUN (7-17) mg/dL Calcium (8.4-10.2) mg/dL 12/19/23 Range/Units 06:17 WBC (3.8-10.6) k/uL Hgb (11.4-16.0) gm/dL MCHC (31.0-37.0) g/dL RDW (11.5-15.5) % Neutrophils # (1.3-7.7) k/uL Monocytes # (0-1.0) k/uL APTT (22.0-30.0) sec Potassium 3.2 L (3.5-5.1) mmol/L Chloride 96 L (98-107) mmol/L Carbon Dioxide 35 H (22-30) mmol/L BUN 21 H (7-17) mg/dL Calcium 7.0 L (8.4-10.2) mg/dL
[2023-12-19] MEDS: FUROSEMIDE 40 MG TAB PO SCH (16:09)
[2023-12-20 06:47] LABS: Basophils # (A) 0.1 k/uL (0-0.2); Basophils % (A) 1 %; Eosinophils # (A) 0.1 k/uL (0-0.7); Eosinophils % (A) 1 %; HCT 33.1 % (34.0-46.0); HGB 9.8 gm/dL (11.4-16.0); Hypochromasia Marked; Lymphocytes # (A) 1.1 k/uL (1.0-4.8); Lymphocytes % (A) 8 %; MCH 26.5 pg (25.0-35.0); MCHC 29.6 g/dL (31.0-37.0); MCV 89.5 fL (80.0-100.0); Mean Platelet Volume 6.9; Monocytes # (A) 1.4 k/uL (0-1.0); Monocytes % (A) 11 %; Neutrophils # (A) 10.2 k/uL (1.3-7.7); Neutrophils % (A) 77 %; Platelet Count 345 k/uL (150-450); RDW 15.5 % (11.5-15.5); WBC 13.3 k/uL (3.8-10.6)
[2023-12-20 06:58] LABS: African American GFR (CKD) 47 (>60 ml/min/1.73 sqM); Blood Urea Nitrogen 34 mg/dL (7-17); Calcium 7.2 mg/dL (8.4-10.2); Chloride 95 mmol/L (98-107); Glucose 84 mg/dL (74-99); Non-African American GFR(CKD) 41 (>60 ml/min/1.73 sqM); Potassium 3.8 mmol/L (3.5-5.1); Sodium 140 mmol/L (137-145)
[2023-12-20 07:07] LABS: Anion Gap 11 mmol/L; Carbon Dioxide 34 mmol/L (22-30)
[2023-12-20] MEDS: SPIRONOLACTONE 25 MG TAB PO SCH (08:33)
--- NOTE | 2023-12-20 13:16 | P.PN ---
Subjective Progress Note Date: 12/20/23 Patient is a 78-year-old female who is admitted to the hospital with increased shortness of breath. She was subsequently diagnosed with COPD exacerbation and congestive heart failure. Patient was given several doses of IV diuretics and then transition to oral. Additional cardiac medications were adjusted to improve lower extremity swelling. Patient has been up ambulating around the room without difficulty. She states her breathing has improved over the last 24 hours and she denies any chest disc omfort. GENERAL: Well-appearing, well-nourished and in no acute distress. NECK: Supple without JVD or thyromegaly. LUNGS: Breath sounds diminished to auscultation bilaterally. Respiration equal and unlabored. No wheezes, rales or rhonchi. HEART: Regular rate and rhythm without murmurs, rubs or gallops. S1 and S2 heard. EXTREMITIES: Normal range of motion, no edema. No clubbing or cyanosis. Kathrine pheral pulses intact and strong. TELEMETRY: Sinus rhythm overnight LABS: WBC 13.3, hemoglobin 9.8, hematocrit 33.1, platelet 345, sodium 140, potassium 3.8, BUN 34, creatinine 1.27 IMPRESSION: Flat troponin elevation most likely due to COPD, hypoxia, rule out CAD Leukocytosis Acute on chronic diastolic heart failure COPD Hypertension Hyperlipidemia PLAN: Continue maximal medical treatment for congestive heart failure Patient may be discharged for outpatient follow-up in 1 to 2 weeks I am dictating on behalf of Dr Adolfo Garnett's history/physical and assessment/plan. Objective - Vital Signs Vital signs: Vital Signs Temp 98.2 F 12/20/23 11:54 Pulse 74 12/20/23 11:58 Resp 16 12/20/23 11:54 BP 104/65 12/20/23 11:54 Pulse Ox 100 12/20/23 11:54 FiO2 Intake & Output 12/19/23 12/20/23 12/20/23 18:59 06:59 18:59 Intake Total 440 200 Balance 440 200 Weight 63.6 kg Intake: Oral 440 200 Other: Voiding Method External Catheter External Catheter Toilet # Voids 1 # Bowel Movements 1 - Labs CBC & Chem 7: 12/20/23 06:03 12/20/23 06:03 Labs: Abnormal Lab Results - Last 24 Hours (Table) 12/20/23 12/20/23 Range/Units 06:03 06:03 WBC 13.3 H (3.8-10.6) k/uL RBC 3.70 L (3.80-5.40) m/uL Hgb 9.8 L (11.4-16.0) gm/dL Hct 33.1 L (34.0-46.0) % MCHC 29.6 L (31.0-37.0) g/dL Neutrophils # 10.2 H (1.3-7.7) k/uL Monocytes # 1.4 H (0-1.0) k/uL Chloride 95 L (98-107) mmol/L Carbon Dioxide 34 H (22-30) mmol/L BUN 34 H (7-17) mg/dL Creatinine 1.27 H (0.52-1.04) mg/dL Calcium 7.2 L (8.4-10.2) mg/dL
[2023-12-21] MEDS: FUROSEMIDE 40 MG TAB PO SCH (09:27)
[2023-12-21 09:36] VITALS: BP 122/67; PULSE 69; RESP 16; TEMP 98.3
== END 2023-12-21 13:22 | disposition home or self-care (01) | DRG 291 ==
LOC: EC 16:53 → 3SCARD 21:39
PROVIDERS: ADMIT Hospitalist; ATTEND Hospitalist
DX: I11.0 Hypertensive heart disease with heart failure (principal); I50.33 Acute on chronic diastolic (congestive) heart failure; E87.3 Alkalosis; J44.1 Chronic obstructive pulmonary disease with (acute) exacerbation; E89.0 Postprocedural hypothyroidism; E78.5 Hyperlipidemia, unspecified; B37.2 Candidiasis of skin and nail; E83.51 Hypocalcemia; I08.1 Rheumatic disorders of both mitral and tricuspid valves; I27.20 Pulmonary hypertension, unspecified; E87.6 Hypokalemia; I25.2 Old myocardial infarction; I70.0 Atherosclerosis of aorta; M19.90 Unspecified osteoarthritis, unspecified site; Z79.82 Long term (current) use of aspirin; Z79.890 Hormone replacement therapy; Z79.899 Other long term (current) drug therapy; Z87.891 Personal history of nicotine dependence; R09.02 Hypoxemia; Z88.0 Allergy status to penicillin; Z88.2 Allergy status to sulfonamides
CPT/HCPCS: 36415; 71046; 71275; 80048; 80053; 83605; 83735; 83880; 84484; 85025; 85379; 85610; 85730; 93005; 93306; 94640; 94760; 96374; 96375; 96376; 99285

== ENCOUNTER 2024-02-04 16:15 | Emergency (ER) | payer MEDICARE ==
[2024-02-04] MEDS: DEXTROSE 5% IN WATER 100 ML with AMIODARONE 150 MG IV ONE (16:23)
[2024-02-04] MEDS: SODIUM CHLORIDE 0.9% 1,000 ML IV STA (16:30)
[2024-02-04] MEDS: ETOMIDATE 2 MG/ML 10 ML VIAL IVP STA (16:32)
[2024-02-04] MEDS: ROCURONIUM 10 MG/ML (5 ML VIAL) IV STA (16:33)
[2024-02-04] MEDS: HEPARIN SODIUM 1,000 UN/ML (10ML VL) MISCELLANE ONE (16:35)
[2024-02-04] MEDS: NOREPINEPHRINE 4 MG in SODIUM CHLORIDE 0.9% 250 ML IV SCH (16:43)
[2024-02-04 16:46] LABS: Anisocytosis Slight; Basophils # (A) 0.1 k/uL (0-0.2); Basophils % (A) 1 %; Eosinophils # (A) 0.2 k/uL (0-0.7); Eosinophils % (A) 1 %; HCT 48.5 % (34.0-46.0); HGB 15.3 gm/dL (11.4-16.0); Hypochromasia Moderate; Lymphocytes # (A) 2.1 k/uL (1.0-4.8); Lymphocytes % (A) 13 %; MCH 30.3 pg (25.0-35.0); MCHC 31.5 g/dL (31.0-37.0); MCV 96.3 fL (80.0-100.0); Macrocytosis Slight; Mean Platelet Volume 8.1; Monocytes # (A) 0.9 k/uL (0-1.0); Monocytes % (A) 5 %; Neutrophils # (A) 13.2 k/uL (1.3-7.7); Neutrophils % (A) 79 %; Platelet Count 279 k/uL (150-450); RBC 5.04 m/uL (3.80-5.40); RDW 19.4 % (11.5-15.5); WBC 16.7 k/uL (3.8-10.6)
[2024-02-04 16:49] LABS: ALT 70 U/L (4-34); African American GFR (CKD) 60 (>60 ml/min/1.73 sqM); Albumin 4.9 g/dL (3.5-5.0); Anion Gap 11 mmol/L; Blood Urea Nitrogen 38 mg/dL (7-17); Calcium 9.2 mg/dL (8.4-10.2); Carbon Dioxide 28 mmol/L (22-30); Chloride 98 mmol/L (98-107); Glucose 218 mg/dL (74-99); Lipase 141 U/L (23-300); Magnesium 2.2 mg/dL (1.6-2.3); Non-African American GFR(CKD) 52 (>60 ml/min/1.73 sqM); Sodium 137 mmol/L (137-145); Total Bilirubin 1.1 mg/dL (0.2-1.3)
[2024-02-04 16:50] LABS: AST 128 U/L (14-36); Alkaline Phosphatase 175 U/L (38-126); Potassium 6.4 mmol/L (3.5-5.1); Total Protein 8.5 g/dL (6.3-8.2)
[2024-02-04 16:53] LABS: Prothrombin Time 11.1 sec (10.0-12.5)
--- NOTE | 2024-02-04 16:54 | XR ---
EXAMINATION TYPE: XR chest 1V DATE OF EXAM: 02/04/2024 4:47 PM COMPARISON: 12/17/2023 CLINICAL INDICATION: Female, 78 years old with history of Chest Pain, TECHNIQUE: XR chest 1V view(s) obtained. FINDINGS: The heart size is normal. The pulmonary vasculature is prominent. Diffuse increase lung markings are present within the mid and upper lung vargas. Correlate for atypic al pulmonary edema. Endotracheal tube tip is 1.4 cm above the tarik and can be pulled back approximately 2 cm. Nasogastr ic tube transverses the field of view the tip in the abdomen. IMPRESSION: 1. Diffuse increased mid and upper lung field markings. Correlate for pulmonary edema. 2. Endotracheal tube 1.4 cm above the tarik. This can be pulled back 2 cm. [facility], , 02/04/2024 4:52 PM
[2024-02-04 16:55] LABS: NT-Pro-B-Type Natriuretic Pept 13800 pg/mL; Partial Thromboplastin Time 21.5 sec (22.0-30.0)
[2024-02-04 17:05] VITALS: BP 108/25; PULSE 110; RESP 20
[2024-02-04] MEDS ORDERED: NALOXONE 0.4 MG/ML 1 ML VIAL IV PRN (17:08)
--- NOTE | 2024-02-04 17:11 | ED ---
General Adult HPI - General Chief complaint: Chest Pain Stated complaint: Stemi Time Seen by Provider: 02/04/24 16:20 Source: patient, EMS, RN notes reviewed, old records reviewed Mode of arrival: EMS Limitations: no limitations - History of Present Illness Initial comments: Patient is a 78-year-old female presents emergency department complaining of dyspnea. Patient apparently has been having dyspnea for multiple days. At least 2 days of bad dyspnea. EMS and family did not report any concern for chest pain. Was due to have a cardiac cath next week. Was feeling short of breath while driving and felt very anxious. Was having bad breathing per EMS. When they arrived, patient had a artifactual EKG but possible ST segment elevation. Patient went to V. tach with a pulse 3 times. Was synchronized cardioverted out of it each time. [address] to [address] hospital and once immediately upon arrival. They were unable to obtain IV access and cannot administer medications. Patient was cold to touch when they arrived. Since V. tach with a pulse, patient has not been responsive. Presents for further evaluation. - Related Data Home Medications Medication Instructions Recorded Confirmed Aspirin 81 mg PO DAILY 03/29/14 12/17/23 Levothyroxine Sodium [Synthroid] 25 mcg PO DAILY 03/29/14 12/17/23 Famotidine [Pepcid] 20 mg PO DAILY PRN 12/17/23 12/17/23 Ferrous Sulfate [Iron (65 MG 325 mg PO DAILY 12/17/23 12/17/23 Elemental)] Fluticasone Propion/Salmeterol 1 puff INHALATION RT-BID 12/17/23 12/17/23 [Wixela 500-50 Inhub] allopurinoL [Zyloprim] 100 mg PO DAILY 12/17/23 12/17/23 Previous Rx's Medication Instructions Recorded Spironolactone [Aldactone] 50 mg PO DAILY 30 Days #30 tab 12/20/23 Valsartan [Diovan] 160 mg PO DAILY 30 Days #30 tab 12/20/23 carvediloL [Coreg] 6.25 mg PO BID-W/MEALS 30 Days #60 12/20/23 tab Furosemide [Lasix] 40 mg PO DAILY #0 tab 12/21/23 Allergies Allergy/AdvReac Type Severity Reaction Status Date / Time Penicillins Allergy Rash/Hives Verified 02/04/24 16:25 Sulfa (Sulfonamide Allergy Rash/Hives Verified 02/04/24 16:25 Antibiotics) Review of Systems ROS Statement: Those systems with pertinent positive or pertinent negative responses have been documented in the HPI. ROS Other: All systems not noted in ROS Statement are negative. Past Medical History Past Medical History: COPD, Hyperlipidemia, Hypertension, Myocardial Infarction ([place]), Osteoarthritis (OA), Thyroid Disorder History of Any Multi-Drug Resistant Organisms: None Reported Additional Past Surgical History / Comment(s): thyroidectomy, carotid stent Past Anesthesia/Blood Transfusion Reactions: No Reported Reaction Smoking Status: Former smoker Past Alcohol Use History: None Reported Past Drug Use History: None Reported - Past Family History Mother Family Medical History: Deep Vein Thrombosis (DVT) General Exam - General Exam Comments Initial Comments: General: Unresponsive with agonal respirations. HEAD: Normal with no signs of head trauma. EYES: Pupils are 3 mm and not reactive to light. ENT: Hearing grossly intact, normal oropharynx. Trachea is midline RESPIRATORY: Clear breath sounds bilaterally. No wheezes, rales, or rhonchi. Respirations. C/V: Regular rate and rhythm. S1 and S2 auscultated, peripheral pulses 2+ and intact throughout ABD: Abdomen is nondistended EXT: No obvious deformity SKIN: No rashes or lesions observed on exposed skin. NEURO: Unresponsive Limitations: no limitations Course Vital Signs 02/04/24 02/04/24 02/04/24 16:16 16:26 16:51 Pulse Rate 79 78 110 H Respiratory 16 16 20 Rate Blood Pressure 138/85 137/79 108/25 O2 Sat by Pulse 100 100 Oximetry Procedures - Intubation Sedative: Etomidate Mg Given: 21 Paralytic: Rocuronium Mg Given: 50 Laryngoscope: other (Glidescope) ET Tube Size: 7.5 Tube Secured Depth (cm): 25 Tube Secured Location: lips Tube Placement Confirmation: visualized tube passing through cords, equal breath sounds bilaterally, confirmation by capnometry Patient Tolerated Procedure: well Intubation Complications: none Medical Decision Making - Medical Decision Making Was pt. sent in by a medical professional or institution (, PA, PACKING SUPERVISOR, urgent care, hospital, or skilled nursing...) When possible be specific @ -No Did you speak to anyone other than the patient for history (EMS, parent, family, police, friend...)? What history was obtained from this source @ -Discussed with EMS who provided history of the V. tach with a pulse as well as to [id number] synchronized cardioversions and 1 in the hospital synchronized cardioversion immediately upon arrival. Discussed that patient was driving when she experienced shortness of breath and called EMS. Did you review nursing and triage notes (agree or disagree)? Why? @ -I reviewed and agree with nursing and triage notes Were old charts reviewed (outside hosp., previous admission, EMS record, old EKG, old radiological studies, urgent care reports/EKG's, skilled nursing records)? Report findings @ -Reviewed old EKG from over 2023 which revealed new onset of the ST segment elevations in leads V2, V3, V4. Differential Diagnosis (chest pain, altered mental status, abdominal pain women, abdominal pain men, vaginal bleeding, weakness, fever, dyspnea, syncope, h eadache, dizziness, GI bleed, back pain, seizure, CVA, palpatations, mental health, musculoskeletal)? @ -ACS, STEMI, ventricular tachycardia. This list is not all inclusive. EKG interpreted by me (3pts min.). @ -As above X-rays interpreted by me (1pt min.). @ -Chest reveals satisfactory placement of the ET tube as well as OG tube. CT interpreted by me (1pt min.). @ -None done U/S interpreted by me (1pt. min.). @ -None done What testing was considered but not performed or refused? (CT, X-rays, U/S, labs)? Why? @ -None What meds were considered but not given or refused? Why? @ -None Did you discuss the management of the patient with other professionals (professionals i.e. , PA, PACKING SUPERVISOR, lab, RT, psych nurse, professor of social work, tire fabricator, teacher, protective services officer, case resource manager)? Give summary @ -Discussed the case with on-call forklift picker, Dr. Garnett when STEMI pager was activated. He was in agreement with plan for workup but wanted to evaluate the patient at bedside prior to [facility]. He is already on his way into the hospital for evaluation. He was present at bedside when patient experienced cardiac arrest. Was in agreement with the medications provided including epinephrine, calcium, bicarb. Was in agreement plan for Levophed drip. Arranged for patient to be taken to cardiac cath. Discussed with the admitting provider, Dr. Girard who accepted the admission. Discussed with ICU attending on-call, Dr. Martíenz to inform him the story regarding the patient. He expressed understanding. Was smoking cessation discussed for >3mins.? @ -No Was critical care preformed (if so, how long)? @ -Yes, 40 minutes Were there social determinants of health that impacted care today? How? (Homelessness, low income, unemployed, alcoholism, drug addiction, transportation, low edu. Level, literacy, decrease access to med. care, group home, rehab)? @ -No Was there de-escalation of care discussed even if they declined (Discuss DNR or withdrawal of care, Hospice)? DNR status @ -No What co-morbidities impacted this encounter? (DM, HTN, Smoking, COPD, CAD, Cancer, CVA, ARF, Chemo, Hep., AIDS, mental health diagnosis, sleep apnea, morbid obesity)? @ -COPD, hypertension, hyperlipidemia, CAD Was patient admitted / discharged? Hospital course, mention meds given and route, prescriptions, significant lab abnormalities, going to OR and other pertinent info. @ -Patient presents altered, following multiple days of shortness of breath, worse today. Had multiple runs of V. tach with a pulse prior to arrival and received synchronized cardioversion. Had an additional episode upon presen tation was synchronized cardioverted for third time. Patient started on amiodarone drip. Initial EKG obtained showed artifact and therefore repeat will be obtained. Patient was intubated at this time as there is concern for airway protection as she is having agonal respirations and not responsive. Intubation was successful with glide scope. Was administered rocuronium and etomidate. Patient given a fluid bolus. Chest x-ray shows satisfactory placement of ET tube as well as OG tube. Discussed with patient's family, her who is at bedside who states that she is full code and was in agreement with the plan. Repeat EKG revealed STEMI and therefore STEMI was activated at 1632. Administered heparin. Already received 324mg aspirin from EMS. [facility] called back at 1634 stating that the catheterization suite was ready. I spoke with on-call forklift picker Dr. Garcia at 1635 who wanted to evaluate the patient prior to catheterization. He was on his way into the emergency department. Patient did have softer blood pressures following intubation and patient eventually did experience bradycardia and had a PEA arrest at 1646 that lasted approximately [address] Garnett presented just as this occurred. Patient received 1 amp of epinephrine, 1 amp of bicarb, 1 amp of calcium. Patient placed on a Levophed drip. Patient's blood pressure did improve following Levophed dosing peripherally. Discussed benefits versus advantages of placing central line at this time and both I and Dr. Persaud were in agreement with transfer of the patient to the catheterization suite for further care. Prognosis is extremely guarded. Patient transferred to the [facility] at 1656. Patient's was updated multiple times throughout the patient's stay in the emergency department. Does state that he understands the poor guarded prognosis for the patient. Is in agreement with the plan for cardiac catheterization and ICU admission. Discussed with the admitting provider, Dr. Girard who accepted the admission. Discussed with ICU attending on-call, Dr. Martínez to inform him the story regarding the patient. He expressed understanding. Studies returned after patient was in cardiac catheterization suite. Remarkable for elevated troponin of 0.391. Patient with a hemolyzed potassium of 6.4. Elevated leukocytosis of 16.7. Undiagnosed new problem with uncertain prognosis? @ -No Drug Therapy requiring intensive monitoring for toxicity (Heparin, Nitro, Insulin, Cardizem)? @ -Heparin Were any procedures done? @ -Intubation Diagnosis/symptom? @ -STEMI, ventricular tachycardia, cardiac arrest with rosc Acute, or Chronic, or Acute on Chronic? @ -Acute Uncomplicated (without systemic symptoms) or Complicated (systemic symptoms)? @ -Complicated Side effects of treatment? @ -No Exacerbation, Progression, or Severe Exacerbation? @ -No Poses a threat to life or bodily function? How? (Chest pain, [place], [place], pneumonia, PE, COPD, DKA, ARF, appy, cholecystitis, CVA, Diverticulitis, Homicidal, Suicidal, threat to staff... and all critical care pts) @ -Yes - Lab Data Result diagrams: 02/04/24 16:23 02/04/24 16:23 Lab Results 02/04/24 02/04/24 02/04/24 Range/Units 16:23 16:23 16:23 WBC 16.7 H (3.8-10.6) k/uL RBC 5.04 (3.80-5.40) m/uL Hgb 15.3 D (11.4-16.0) gm/dL Hct 48.5 H (34.0-46.0) % MCV 96.3 D (80.0-100.0) fL MCH 30.3 (25.0-35.0) pg MCHC 31.5 (31.0-37.0) g/dL RDW 19.4 H (11.5-15.5) % Plt Count 279 (150-450) k/uL MPV 8.1 Neutrophils % 79 % Lymphocytes % 13 % Monocytes % 5 % Eosinophils % 1 % Basophils % 1 % Neutrophils # 13.2 H (1.3-7.7) k/uL Lymphocytes # 2.1 (1.0-4.8) k/uL Monocytes # 0.9 (0-1.0) k/uL Eosinophils # 0.2 (0-0.7) k/uL Basophils # 0.1 (0-0.2) k/uL Hypochromasia Moderate Anisocytosis Slight Macrocytosis Slight PT 11.1 (10.0-12.5) sec INR 1.0 (<1.2) APTT 21.5 L (22.0-30.0) sec Sodium 137 (137-145) mmol/L Potassium 6.4 H* (3.5-5.1) mmol/L Chloride 98 (98-107) mmol/L Carbon Dioxide 28 (22-30) mmol/L Anion Gap 11 mmol/L BUN 38 H (7-17) mg/dL Creatinine 1.04 (0.52-1.04) mg/dL Est GFR (CKD-EPI)AfAm 60 (>60 ml/min/1.73 sqM) Est GFR (CKD-EPI)NonAf 52 (>60 ml/min/1.73 sqM) Glucose 218 H (74-99) mg/dL Calcium 9.2 (8.4-10.2) mg/dL Magnesium 2.2 (1.6-2.3) mg/dL Total Bilirubin 1.1 (0.2-1.3) mg/dL AST 128 H (14-36) U/L ALT 70 H (4-34) U/L Alkaline Phosphatase 175 H (38-126) U/L Troponin I (0.000-0.034) ng/mL NT-Pro-B Natriuret Pep 01248 pg/mL Total Protein 8.5 H (6.3-8.2) g/dL Albumin 4.9 (3.5-5.0) g/dL Lipase 141 (23-300) U/L 02/04/24 Range/Units 16:23 WBC (3.8-10.6) k/uL RBC (3.80-5.40) m/uL Hgb (11.4-16.0) gm/dL Hct (34.0-46.0) % MCV (80.0-100.0) fL MCH (25.0-35.0) pg MCHC (31.0-37.0) g/dL RDW (11.5-15.5) % Plt Count (150-450) k/uL MPV Neutrophils % % Lymphocytes % % Monocytes % % Eosinophils % % Basophils % % Neutrophils # (1.3-7.7) k/uL Lymphocytes # (1.0-4.8) k/uL Monocytes # (0-1.0) k/uL Eosinophils # (0-0.7) k/uL Basophils # (0-0.2) k/uL Hypochromasia Anisocytosis Macrocytosis PT (10.0-12.5) sec INR (<1.2) APTT (22.0-30.0) sec Sodium (137-145) mmol/L Potassium (3.5-5.1) mmol/L Chloride (98-107) mmol/L Carbon Dioxide (22-30) mmol/L Anion Gap mmol/L BUN (7-17) mg/dL Creatinine (0.52-1.04) mg/dL Est GFR (CKD-EPI)AfAm (>60 ml/min/1.73 sqM) Est GFR (CKD-EPI)NonAf (>60 ml/min/1.73 sqM) Glucose (74-99) mg/dL Calcium (8.4-10.2) mg/dL Magnesium (1.6-2.3) mg/dL Total Bilirubin (0.2-1.3) mg/dL AST (14-36) U/L ALT (4-34) U/L Alkaline Phosphatase (38-126) U/L Troponin I 0.391 H* (0.000-0.034) ng/mL NT-Pro-B Natriuret Pep pg/mL Total Protein (6.3-8.2) g/dL Albumin (3.5-5.0) g/dL Lipase (23-300) U/L - EKG Data -: EKG Interpreted by Me EKG Comments: 12-lead Electrocardiogram Interpretation Note EKG was reviewed and interpreted by myself. 12-lead ECG performed at 1629 is interpreted by me as revealing normal sinus rhythm at a rate of 68 beats per minute.. There were ST segment elevations in leads V2 through V4 with reciprocal depressions in leads II and aVF. Q waves also in the anterior precordial leads. This all seems acute when compared with EKG from November 2023.. R wave progression across the precordium was delayed. My interpretation, this EKG concerning for STEMI.. 12-lead Electrocardiogram Interpretation Note EKG was reviewed and interpreted by myself. 12-lead ECG performed at 1646 is interpreted by me as revealing normal sinus rhythm at a rate of 51 beats per minute. [place] is normal. QRS duration is 110 ms, QTc is 4 and 38 ms,.. Continued ST segment elevation in leads V2 and V3 with reciprocal depressions mildly in II and aVF.. R wave progression across the precordium was satisfactory. EKG is still concerning for STEMI.. Critical Care Time Critical Care Time: Yes Total Critical Care Time: 40 Disposition Clinical Impression: STEMI (ST elevation myocardial infarction), Cardiac arrest, Ventricular tachycardia Disposition: ADMITTED IP TO THIS HOSP Condition: Critical Time of Disposition: 17:00
[2024-02-04] MEDS: LIDOCAINE 1% INJ 10MG/ML (20 ML MDV) SQ ONE (17:16)
[2024-02-04] MEDS: VERAPAMIL SYRINGE (5 MG/10 ML) INTRAARTER ONE (17:18)
[2024-02-04] MEDS: SODIUM CHLORIDE 0.9% 1,000 ML IV ONE (17:22)
[2024-02-04] MEDS: IV FLUID CONTINUATION 1,000 ML IV ONE (17:22)
[2024-02-04] MEDS: AMIODARONE 360 MG in DEXTROSE 5% IN WATER 200 ML IV ONE (17:22)
[2024-02-04] MEDS: LIDOCAINE 2% SYG (PF) 100 MG/5 ML MISCELLANE ONE (17:26)
[2024-02-04] MEDS ORDERED: LIDOCAINE-D5W PMX 2G/250ML 2,000 MG in DEXTROSE/WATER 1 250ML.BAG IV SCH (17:30)
[2024-02-04] MEDS: HEPARIN SODIUM 1,000 UN/ML (10ML VL) IV ONE (17:32)
[2024-02-04] MEDS: LIDOCAINE-D5W PMX 2G/250ML 2,000 MG in DEXTROSE/WATER 1 250ML.BAG IV SCH (17:45)
[2024-02-04] MEDS: PHENYLEPHRINE-0.9% NACL SYG 1,000 MCG/10 ML SYRINGE IVP ONE (17:55)
[2024-02-04] MEDS: EPINEPHrine 4 MG in DEXTROSE 5% IN WATER 250 ML IV SCH (18:32)
[2024-02-04] MEDS: IOPAMIDOL-370 100ML BTL INJ ONE ×2 (18:36)
--- NOTE | 2024-02-04 18:57 | P.EN ---
GARTH CARLYN called overhead around 6 PM on 02/04/2024. Patient already in [facility]. Patient reportedly had arrested in the ER, and had CPR for 5 minutes prior to being into the [facility]. On arrival, patient already been shocked couple of times, couple rounds of CPR and epi. Patient already on Levophed, amiodarone and lidocaine drip. She received multiple doses of epi, bicarb, calcium gluconate. She also received phenylephrine. She also received couple doses of magnesium.. Persistently in coarse V-fib, shocked multiple times. She did achieve ROSC briefly a few times but quickly devolved into V-fib again. Despite best effort, unable to sustain ROSC for prolonged period. Patient pronounced at 6: 36 PM. Family made aware.
[2024-02-04] MEDS ORDERED: AMIODARONE 450 MG in DEXTROSE 5% IN WATER 250 ML IV SCH (23:00)
--- NOTE | 2024-02-09 19:07 | P.CRDCN ---
History of Present Illness History of present illness: This is Dr. Garnett dictating a consult on this patient The patient was interviewed and examined in the ER when she was brought in by EMS IMPRESSION / ASSESSMENT: Anterior wall infarction VF arrest on the field VF arrest requiring resuscitation once again in the ER PLAN: Urgent coronary angiography and revascularization percutaneously HPI Called by ER physician Dr. Saldivar Patient presented with shortness of breath acute MD and recurrent VF arrest requiring resuscitation on the field She had a recurrence in the ER and required resuscitation once again Her twelve-lead EKG showed ST elevation V2-V5 with a [address] depression in the inferior leads She was intubated and taken to the [facility] On speaking to the and the EMS personnel, she denied any chest discomfo rt but she just felt short of breath and did not feel right today. She may be having symptoms for the last 2 days with increasing shortness of breath She is on home oxygen has hypertension was on valsartan along with aspirin and carvedilol and spironolactone EXAMINATION: Intubated tachycardic blood pressure 108/25 mmHg mechanically ventilated No murmurs over the precordium REVIEW OF LABS, ECG & MEDICAL DATA White count elevated 6.7 thousand, hemoglobin 15 Potassium 6.4 Creatinine 0.4 NT proBNP almost 14,000 Abnormal LFTs Past Medical History Past Medical History: COPD, Hyperlipidemia, Hypertension, Myocardial Infarction ([place]), Osteoarthritis ([place]), Thyroid Disorder History of Any Multi-Drug Resistant Organisms: None Reported Additional Past Surgical History / Comment(s): thyroidectomy, carotid stent Past Anesthesia/Blood Transfusion Reactions: No Reported Reaction Smoking Status: Former smoker Past Alcohol Use History: None Reported Past Drug Use History: None Reported - Past Family History Mother Family Medical History: Deep Vein Thrombosis (DVT) Medications and Allergies Home Medications Medication Instructions Recorded Confirmed Type Aspirin 81 mg PO DAILY 03/29/14 12/17/23 History Levothyroxine Sodium [Synthroid] 25 mcg PO DAILY 03/29/14 12/17/23 History Famotidine [Pepcid] 20 mg PO DAILY PRN 12/17/23 12/17/23 History Ferrous Sulfate [Iron (65 MG 325 mg PO DAILY 12/17/23 12/17/23 History Elemental)] Fluticasone Propion/Salmeterol 1 puff INHALATION RT-BID 12/17/23 12/17/23 History [Wixela 500-50 Inhub] allopurinoL [Zyloprim] 100 mg PO DAILY 12/17/23 12/17/23 History Spironolactone [Aldactone] 50 mg PO DAILY 30 Days #30 tab 12/20/23 Rx Valsartan [Diovan] 160 mg PO DAILY 30 Days #30 tab 12/20/23 Rx carvediloL [Coreg] 6.25 mg PO BID-W/MEALS 30 Days #60 12/20/23 Rx tab Furosemide [Lasix] 40 mg PO DAILY #0 tab 12/21/23 Rx Allergies Allergy/AdvReac Type Severity Reaction Status Date / Time Penicillins Allergy Rash/Hives Verified 02/04/24 16:25 Sulfa (Sulfonamide Allergy Rash/Hives Verified 02/04/24 16:25 Antibiotics) Results 02/04/24 16:23 02/04/24 16:23 02/04/24 16:23 02/04/24 16:23
--- NOTE | 2024-02-10 11:12 | P.PCN ---
Date of Procedure: 02/04/24 Operative Findings: Catheterization and percutaneous coronary intervention Performing physician Bebeto San MD Procedure performed Selective right and left coronary angiogram Left heart catheterization PCI of the left anterior descending artery and left main coronary artery Adjunctive use of IVUS Placement of temporary pacemaker Ultrasound-guided access of the right common femoral vein Ultrasound-guided access of the right radial artery Indication Chest discomfort and shortness of breath Cardiac arrest with V-fib EKG concerning for STEMI Approach Right radial artery Procedure description After obtaining an informed consent and after the patient was seen in the emergency department by Dr. Garnett, the decision was made to order an emergent heart catheterization with possible percutaneous coronary intervention. The patient was arrived intubated. She was prepped and draped in the usual sterile fashion. Local analgesia was achieved by injecting lidocaine at the right groin. The right common femoral vein was cannulated using micropuncture technique under ultrasound guidance the micropuncture wire passed easily then I placed an 8 Telugu 11 cm sheath at the right common femoral vein for IV access in case the patient crash throughout the procedure and for IV access as well. Subsequently the right radial artery was cannulated using micropuncture technique under ultrasound guidance the micropuncture wire passed easily then I placed a 6 Telugu 11 cm sheath at the right radial artery. Selective right and left coronary angiogram performed using JR4 and JL 3.5 catheters. Left heart catheterization was performed using the JR4 catheter which crossed the aortic valve then we did pullback across the valve. After that and after finding out that the LAD was occluded by the ostium I decided to intervene on the left anterior descending artery. At that point anticoagulation was initiated using heparin with continuous ACT monitoring. At that point I engaged the left main coronary artery using JL 3.5 guiding catheter. Please note that the time I engaged the left main with the guiding catheter the patient went into V-fib and subsequently we shocked the patient and brought her back to normal sinus mechanism. She was already on amiodarone IV when she came from the emergency department from the previous V-fib episode, I gave the patient lidocaine IV and started the patient on lidocaine drip. Subsequently attempting wiring the LAD was initially unsuccessful and the wire went into the OM1. But after that I was able to wire the LAD using 014 wire and the wire was advanced to the distal LAD smoothly. I did balloon angioplasty using 2 mm balloon. I was able to restore the flow to the LAD. Please note that initially I wired the first obtuse marginal branch and I did balloon angioplasty using 2 mm balloon, because the first OM was taking a course similar to the LAD and initially we thought that was the LAD. After restoring the flow in the LAD I did IVUS of the LAD but the IVUS was able only to be advanced to the very proximal LAD which was extremely calcified. The diameter was around 3 mm to 3.25 mm. Attempting advancing 3.25 x 28 mm stent was unsuccessful because the stent was not crossing the lesion in the very proximal LAD and ostial LAD. At that point I decided to balloon the LAD using 3 mm noncompliant balloon. I was able to advance the balloon and I did balloon angioplasty of the proximal LAD using a 3 mm NC balloon. Attempting advancing the stent again was unsuccessful. At that point I decided to use GuideLiner and with that being said I had to pull the wire from the left circumflex which was initially left at the left circumflex chest in case we need to stent across the left circumflex to the left main. That was a whisper wire. At that point I advanced GuideLiner to the distal part of the guide. Please note that the patient's blood pressure throughout the procedure to this point was below and we had to maximize the dose of norepinephrine. Advancing the stent with adjunctive use of GuideLiner was successful but during advancing the stent the patient blood pressure dropped significantly and we started CPR on the patient and at that point I had to deploy the stent in the ostial and proximal LAD across the left circumflex coronary artery. Subsequently CPR was initiated and the patient was given multiple medications during CPR including epinephrine and atropine and bicarb. CPR was lasted for several minutes. An angiogram was performed after we restore the rhythm and after placing a temporary pacemaker, showed that the flow was sluggish in the LAD with possible small thrombus in the LAD and extremely slow flow in the left circumflex coronary artery with ostial left main appeared to be concerning. At that point I decided to stent the left main where I deployed 4.0 x 18 mm with overlap between the stent in the left main and the stent in the LAD and then I ballooned the area of overlap using 3.5 mm balloon. CPR continued throughout after that and unfortunately we could not bring the patient back. The case was discussed with the patient's and her family in details. Selective coronary angiogram The RCA is a small to medium caliber vessel and nondominant vessel with no evidence of high-grade stenosis The left main Extremely calcified with mild to moderate disease noted The LCx Large-caliber vessel nondominant vessel with mild to moderate disease with no evidence of high-grade stenosis The LAD He is occluded by the ostium. Hemodynamic The LVEDP was 20 mmHg with no significant gradient across aortic valve Conclusion Extremely calcified right and left coronary system Occluded LAD by the ostium PCI of the LAD and left main was performed The patient had multiple cardiac arrest with V-fib and asystole
== END 2024-02-04 22:45 | disposition expired ==
LOC: EC 16:15 → 2SICU 17:10 → UNDOADMIN 17:10 → UNDODISIN 22:45 → EC 22:45
DX: I21.3 ST elevation (STEMI) myocardial infarction of unspecified site (principal); I47.20 Ventricular tachycardia, unspecified; I25.2 Old myocardial infarction; I46.2 Cardiac arrest due to underlying cardiac condition; E03.9 Hypothyroidism, unspecified; M19.90 Unspecified osteoarthritis, unspecified site; Z79.890 Hormone replacement therapy; E78.5 Hyperlipidemia, unspecified; I10 Essential (primary) hypertension; J44.9 Chronic obstructive pulmonary disease, unspecified; Z79.82 Long term (current) use of aspirin; Z87.891 Personal history of nicotine dependence; Z88.0 Allergy status to penicillin; Z88.2 Allergy status to sulfonamides
CPT/HCPCS: 31500; 96365; 96375; 99291; 36415; 92950; 93005; 92978; 33210; 93458; 92920; 83880; 80053; 83690; 83735; 84484; 85025; 85610; 85730; 71045; C9606; J0171; J0282 ×2; J2003 ×2; J1644; Q9967; J2002; J2371; 94002